=== PATIENT | male | born 1950 | race Caucasian/White ===

== ENCOUNTER 2022-09-04 21:57 | Emergency (ER) | payer SELFPAY ==
[~2022-09-04] VITALS: Ht 172.7 cm; Wt 79.4 kg
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
--- NOTE | 2022-09-04 22:32 | NUR ---
DR. WALKER AT BEDSIDE
--- NOTE | 2022-09-04 23:00 | NUR ---
Patient discharged to home in stable condition. Written and verbal after care instructions given. Patient verbalizes understanding of instruction.
[2022-09-04 23:21] VITALS: BP 161/88; TEMP 98
== END 2022-09-04 23:00 | disposition home or self-care (01) ==
LOC: ER 22:03
DX: J69.0 Pneumonitis due to inhalation of food and vomit (principal); I10 Essential (primary) hypertension; E78.5 Hyperlipidemia, unspecified; I48.91 Unspecified atrial fibrillation; K21.9 Gastro-esophageal reflux disease without esophagitis